=== PATIENT | female | born 1940 | race Caucasian/White ===

== ENCOUNTER 2018-07-23 11:09 | Day surgery (SDC) | payer OTHER, BC ==
[2018-06-27 16:11] VITALS: BMI 23.6
--- NOTE | 2018-06-28 09:36 | HP ---
Admitting History and Physical - Primary Care Physician PCP: Michael Bullard - Admission Chief Complaint: Right breast cancer History of Present Illness: 77 year old nulliparous postmenapausal female who noted right nipple retraction 04/2018. mammogram and US 05/2018 showed subareolar density 2.6 cm with calcifications measuring 2.2 cm on US at 11:00 1 cm FN. 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 Breast MRI 06/2018 showed localized right breast cancer. History Source: Patient Limitations to Obtaining History: No Limitations - Past Medical History Cardiovascular: Yes: HTN, Hyperlipdemia - Past Surgical History Past Surgical History: Yes: Cataract Removal (), Tonsillectomy (1944) - Smoking History Smoking history: Never smoked - Alcohol/Substance Use Hx Alcohol Use: Yes (2 vodka and soda daily) Home Medications - Allergies Allergies/Adverse Reactions: Allergies Allergy/AdvReac Type Severity Reaction Status Date / Time No Known Allergies Allergy Verified 06/27/18 15:50 - Home Medications Home Medications: Ambulatory Orders Folic Acid 1 mg PO DAILY 06/27/18 Simvastatin [Zocor -] 10 mg PO DAILY 06/27/18 Telmisartan/Amlodipine [Telmisartan-Amlodipine 80-5 mg] 1 each PO DAILY Vitamin B Complex 1 each PO DAILY 06/27/18 Family Disease History - Family Disease History Family History: Denies Physical Examination Constitutional: Yes: Well Nourished Breast(s): Yes: Other (tremely ptotic breasts D cup with obvious right nipple retraction 2 cm density right breast lateral subareolar region but no obvious retraction no adenopathy) Problem List - Problems (1) Breast cancer, right breast Code(s): C50.911 - MALIGNANT NEOPLASM OF UNSP SITE OF RIGHT FEMALE BREAST Qualifiers: Breast location: central portion of breast Estrogen receptor status: negative Patient sex: female Qualified Code(s): C50.111 - Malignant neoplasm of central portion of right female breast; Z17.1 - Estrogen receptor negative status [ER-] Assessment/Plan Right central wide excision , sentenel node biopsy , possible axillary node dissection, lymphoscintogram
[2018-07-23] MEDS ORDERED: BUPIVACAINE HCL/PF 2.5 MG/ML - 30 ML VIAL IJ ONE (12:36)
[2018-07-23] MEDS ORDERED: ISOSULFAN BLUE 10 MG/ML VIAL SQ ONE (12:36)
[2018-07-23] MEDS ORDERED: PROPOFOL 20 ML ONE (13:52)
[2018-07-23] MEDS ORDERED: SODIUM CHLORIDE 0.9% P/F 10 ML VIAL IJ ONE (13:54)
[2018-07-23] MEDS ORDERED: ceFAZolin SODIUM 1 GM VIAL ONE (13:54)
[2018-07-23] MEDS ORDERED: ONDANSETRON 4 MG/2 ML VIAL ONE ×2 (14:19→16:42)
[2018-07-23] MEDS ORDERED: DEXAMETHASONE SOD PHOSPHATE 4 MG/1 ML VIAL ONE (14:19)
[2018-07-23] MEDS ORDERED: BUPIVACAINE HCL/PF 0.25% (2.5MG/ML) 10 ML VIAL IJ ONE (14:26)
[2018-07-23] MEDS ORDERED: KETOROLAC TROMETHAMINE 30 MG/1 ML VIAL ONE (14:57)
[2018-07-23] MEDS ORDERED: oxyCODONE HCL 5 MG TABLET PO PRN (15:13)
[2018-07-23] MEDS ORDERED: PROMETHAZINE HCL 25 MG/1 ML VIAL IVPUSH PRN (15:13)
[2018-07-23] MEDS ORDERED: LACTATED RINGERS SOLUTION 1,000 ML IV SCH (15:15)
[2018-07-23] MEDS ORDERED: ONDANSETRON 4 MG/2 ML VIAL IVPUSH PRN ×2 (15:27→16:13)
[2018-07-23] MEDS ORDERED: GUM MASTIC/STORAX/MSAL/ALCOHOL 1 DRP DROPSBTL MC ONE (15:27)
[2018-07-23] MEDS ORDERED: METOPROLOL TARTRATE 5 MG/5 ML VIAL ONE (15:40)
[2018-07-23] MEDS ORDERED: KETOROLAC TROMETHAMINE 30 MG/1 ML VIAL IVPUSH PRN (16:13)
[2018-07-23] MEDS ORDERED: DEXTROSE 5%-0.45% SALINE 1,000 ML IV SCH (16:15)
[2018-07-23 16:56] VITALS: TEMP 97.9
[2018-07-23 18:17] VITALS: BP 135/77; PULSE 76
--- NOTE | 2018-07-24 01:39 | OP ---
DATE OF OPERATION: 07/23/2018 PREOPERATIVE DIAGNOSIS: Right breast central upper outer quadrant breast cancer. POSTOPERATIVE DIAGNOSIS: Right breast central upper outer quadrant breast cancer. PROCEDURE: Right breast central wide excision with right axillary sentinel lymph node biopsy and 5 x 6 cm tissue transfer closure. ANESTHESIA: General laryngeal mask airway anesthesia. PRIMARY SURGEON: Danay Bullard MD PROJECTS MANAGER: JOSE Fritz COMPLICATIONS: None. INDICATIONS: Briefly, the patient is a 77-year-old nulliparous, postmenopausal white female of [place], [place], and [place] descent. She developed some right nipple retraction in April 2018 and a mammogram and ultrasound showed subareolar 2.6-cm mass. Ultrasound showed a 2.2-cm density at the 11 o'clock periareolar region 1 cm from the nipple. Ultrasound-guided core biopsy in May 2018 showed a metaplastic triple-negative breast cancer. She underwent an MRI, which showed a 3.3 x 2.2 x 1.6 cm mass just towards the upper outer aspect of the right breast, which was localized. The patient was advised to undergo a right breast central wide excision with axillary sentinel lymph node biopsy. Preoperatively, however, she was noted to have thrombocytosis with a platelet count over 800,000 and was seen by Hematology and was placed on hydroxyurea preoperatively until we could get her platelet count down low enough to perform the surgery. The patient is felt to be stable for surgery and was scheduled for July 23, 2018. She first underwent a lymphoscintigraphy to her periareolar injection of technetium 99 at [facility] on July 23, 2018. She was brought to the [facility] area. In the holding area, site verification was made and informed consent was obtained. DESCRIPTION OF PROCEDURE: She was brought into the operating room and laid on the OR table in the supine position. Venodynes were placed on the lower extremities prior to induction. She received 1 g of Ancef prior to incision. She underwent general laryngeal mask airway anesthesia. Then 3 mL of Lymphazurin blue were injected intradermally around the periareolar region of the right breast nipple areolar complex. Massage was instituted. The right breast was then sterilely prepped and draped in the usual fashion with the right arm prepped in the field. At this point, the sentinel lymph node biopsy was first performed. An incision was made just below the hair-bearing area of the right axilla and dissection was undertaken using the navigator probe to direct the dissection. Four sentinel lymph nodes were easily found in the right axillary region. The first node was blue and hot with a 10-second gamma count of 4592. The second sentinel lymph node was hot with a 10-second gamma count of 1531. The third sentinel lymph node was hot with a 10-second gamma count of 190. The fourth sentinel lymph node in the level 2 region was hot with a 10-second gamma count of 3040. Back counts after removing these 4 nodes was 25. No other blue or hot nodes were found. These were all sent to Pathology on formalin for permanent section. None of them were grossly involved with cancer. Hemostasis was achieved and the axillary wound was closed using interrupted 2-0 plain suture and interrupted 3-0 deep dermal Vicryl suture and a running 4-0 subcuticular Biosyn suture. At this point, the central wide excision was undertaken by making an elliptical incision encompassing the nipple areolar complex centrally and wedging deeply into the right breast and staying away from the tumor. The mass was completely excised with surrounding breast tissue all of the way down to the pectoralis major muscle in a wedge-like fashion. The specimen was oriented with a long lateral, short superior suture and specimen radiographs showed removal of the clip in question. Hemostasis was achieved. Separate margins were then taken on the superior, inferior, medial, lateral, and deep aspects with sutures marking the biopsy cavity side. These were all sent separately to Pathology as wide excision margins. At this point, a 6 x 8 cm tissue transfer closure was accomplished by undermining the breast tissue and reapproximating the breast tissue using interrupted 2-0 plain suture. The skin was then closed using interrupted 3-0 deep dermal Vicryl suture and a running 4-0 subcuticular Biosyn suture. Mastisol and Steri-Strips were applied over the wounds with a compressive dressing placed over this. She was placed in a surgical bra postoperatively. Laryngeal mask air tube was removed at the end of the case. The patient was transferred to the postanesthesia care unit in stable condition. She will be recovered and discharged home the same day once discharge criteria are met. She is to follow up in the office in 1 week for formal wound and pathology check. Estimated blood loss was about 50 mL. She was hemodynamically stable throughout. DANAY BULLARD M.D. [id number]
--- NOTE | 2018-07-31 11:19 | PATH ---
Surgical Pathology Report Patient Name: DERIAN DELGADO [facility]. Rec. #: [id number] /Age/Gender: 1940 (Age: 77) / F Account: [id number] Location: [facility] Taken: 07/23/2018 Received: 07/23/2018 Reported: 07/31/2018 Physicians: Michael Bullard M.D. Specimen(s) Received A: RIGHT AXILLARY SENTINEL NODE #1 B: RIGHT AXILLARY SENTINEL NODE #2 C: RIGHT AXILLARY SENTINEL NODE #3 D: RIGHT AXILLARY SENTINEL NODE #4 E: RIGHT BREAST SUPERIOR MARGIN F: RIGHT BREAST MEDIAL MARGIN G: RIGHT BREAST INFERIOR MARGIN H: RIGHT BREAST LATERAL MARGIN I: RIGHT BREAST POSTERIOR MARGIN J: RIGHT BREAST WIDE EXCISION Clinical History Right central upper outer quadrant metaplastic breast cancer Final Diagnosis A. LYMPH NODE, RIGHT AXILLARY SENTINEL #1, EXCISION: ONE LYMPH NODE, NEGATIVE FOR METASTATIC CARCINOMA (0/1). B. LYMPH NODE, RIGHT AXILLARY SENTINEL #2, EXCISION: ONE LYMPH NODE, NEGATIVE FOR METASTATIC CARCINOMA (0/1). C. LYMPH NODE, RIGHT AXILLARY SENTINEL #3, EXCISION: ONE LYMPH NODE, NEGATIVE FOR METASTATIC CARCINOMA (0/1). D. LYMPH NODE, RIGHT AXILLARY SENTINEL #4, EXCISION: ONE LYMPH NODE, NEGATIVE FOR METASTATIC CARCINOMA (0/1). Note: Cytokeratin (AE 1/3) immunostain was used in the evaluation of specimen D. E. BREAST, RIGHT, SUPERIOR MARGIN, EXCISION: BENIGN PREDOMINANTLY FATTY BREAST TISSUE. F. BREAST, RIGHT, MEDIAL MARGIN, EXCISION: BENIGN PREDOMINANTLY FATTY BREAST TISSUE. G. BREAST, RIGHT, INFERIOR MARGIN, EXCISION: BENIGN BREAST TISSUE. H. BREAST, RIGHT, LATERAL MARGIN, EXCISION: BENIGN BREAST TISSUE SHOWING FIBROCYSTIC CHANGES. I. BREAST, RIGHT, POSTERIOR MARGIN, EXCISION: BENIGN BREAST TISSUE. J. 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 (SEE NOTE). CARCINOMA MEASURES 3.3 CM IN GREATEST DIMENSION (GROSS MEASUREMENT) AND INVOLVES DEEP DERMIS OF NIPPLE/SKIN AND RETROAREOLAR TISSUE. CARCINOMA IS FOCALLY CLOSE TO (< 1 MM) THE SUPERIOR MARGIN. SEE SPECIMENS E-I FOR FINAL MARGINS. NO LYMPHOVASCULAR INVASION IS IDENTIFIED. PATHOLOGIC STAGE (pTNM): pT2 pN0. SEE ALSO INVASIVE CARCINOMA CASE SUMMARY BELOW. Note: The carcinoma is comprised predominantly of short intersecting fascicles of low-grade cytologically bland spindle cells and abundant collagenous stroma. In addition, the tumor shows small, cohesive clusters of fusiform to polygonal epithelioid cells with rounded nuclei and prominent nucleoli scattered among spindle cells. Immunohistochemical studies performed at [facility] show the following results: the tumor cells are positive for cytokeratin (AE1/3) and p63 while negative for ER and WV. Immunohistochemical studies performed at [place], [place] ([id number]) show the following results: the tumor cells are positive for Cam 5.2 while negative for CD34, Calponin and Her2. Ki67 shows a low proliferative index (~10%). These finding support the diagnosis. (See also prior slide review case: our case # [id number] outside institution case # [id number]). Fibromatosis-like spindle cell carcinoma is a rare low-grade variant of metaplastic spindle cell carcinomas of the breast, which in turn represent a subclassification of metaplastic carcinoma of the breast. These tumors warrant distinction from other metaplastic carcinomas in the breast because of their unique resemblance to pure fibromatosis, their propensity for local recurrence and a favorable prognosis among the metaplastic carcinomas of the breast. These tumors can be locally aggressive with increased incidence of local recurrence, but potential for lymph node and distant metastasis is low. (Reference: Low-Grade Fibromatosis-like Spindle Cell Carcinoma of the Breast: Abel et al; Arch Pathol Lab Med- September 2014) Comments Breast Invasive Carcinoma: Surgical Pathology Case Summary (Based on AJCC TNM 8 th edition) Procedure _X_ Excision (less than total mastectomy) Specimen Laterality _X_ Right Tumor Size Microinvasion only (=1 mm) Greatest dimension of largest invasive focus >1 mm: 33 mm Histologic Type _X_ Fibromatosis-like metaplastic carcinoma Histologic Grade (Edwards Histologic Score) Glandular (Acinar)/Tubular Differentiation _X_ Score cannot be determined Nuclear Pleomorphism _X__ Score 1-2 Mitotic Rate _X_ Score 1 Overall Grade _X_ Score cannot be determined Tumor Focality _X_ Single focus of invasive carcinoma Ductal Carcinoma In Situ (DCIS) _X_ No DCIS in specimen Tumor Extension Skin _X_ Invasive carcinoma directly invades into the dermis or epidermis without skin ulceration Margins Invasive Carcinoma Margins _X_ Uninvolved by invasive carcinoma Distance from closest margin (millimeters): > 1 mm from superior margin in wide excision J. Final superior margin E is negative for carcinoma DCIS Margins _X_ No DCIS in specimen Regional Lymph Nodes Number of Lymph Nodes with Macrometastases (>2 mm): 0 Number of Lymph Nodes with Micrometastases (>0.2 mm to 2 mm and/or >200 cells): 0 Number of Lymph Nodes with Isolated Tumor Cells (=0.2 mm and =200 cells): 0 Number of Lymph Nodes Examined: 4 Number of [place] Mar Nodes Examined : 4 Treatment Effect _X_ No known presurgical therapy Lymphovascular Invasion _X_ Not identified Pathologic Stage Classification (pTNM, AJCC 8th Edition) Primary Tumor (Invasive Carcinoma) (pT) _X_ pT2: Tumor >20 mm but =50 mm in greatest dimension Regional Lymph Nodes (pN) Category (pN) _X_ pN0: No regional lymph node metastasis identified or ITCs only Biomarker Studies Results of ER and WV studies performed on this specimen (block J1) at [facility] are as follows: ER (clone [id number] mouse monoclonal antibody by [employer]):0 % nuclear staining (Negative). WV (clone16 mouse monoclonal antibody by [employer]): 0 % nuclear staining (Negative). Results of Her2 (IHC) & Ki-67 studies performed on this specimen (block J1) at [place], [place] ([id number]) are as follows: Her2 IHC (EP3 from [employer], formerly known as [id number], using [employer] Polymer Refine detection kit): 0 (Negative). Ki67: ~10% (low proliferative index). Positive and negative controls (internal if applicable) show appropriate results. Formalin fixation and cold ischemic times are within current ASCO/CAP recommendations for ER, WV and Her2 testing. Electronically Signed Jaja Alvarez M.D. Gross Description A. Received in formalin labeled "right axillary sentinel node #1," is a 1.7 x 1.5 x 0.5 cm lymph node with attached fat. The specimen is bisected and entirely submitted in one cassette. B. Received in formalin labeled "right axillary sentinel node #2," is a 1.0 x 0.6 x 0.5 cm lymph node. The specimen is bisected and entirely submitted in one cassette. C. Received in formalin labeled "right axillary sentinel node #3," is a 1.6 x 1.3 x 0.4 cm barrera lymph node. The specimen is bisected and entirely submitted in one cassette. D. Received in formalin labeled "right axillary sentinel node #4," is a 1.5 x 0.9 x 0.6 cm lymph node. The specimen is bisected and entirely submitted in one cassette. E. Received in formalin labeled "right breast superior margin," is a 3.1 x 2.7 x 1.0 cm portion of fibroadipose tissue with a suture marking the biopsy cavity side, per the surgeon. The new margin is inked blue and the specimen is serially sectioned. The specimen is entirely and is largely submitted in 4 cassettes. F. Received in formalin labeled "right breast medial margin," is a 2.5 x 1.5 x 1.0 cm portion of fibroadipose tissue with a suture marking the biopsy cavity side, per the surgeon. The new margin is inked blue and the specimen is serially sectioned. The specimen is entirely submitted in 3 cassettes. G. Received in formalin labeled "right breast inferior margin," is a 1.8 x 1.5 x 0.7 cm portion of fibroadipose tissue with a suture marking the biopsy cavity side, per the surgeon. The new margin is inked blue and the specimen is serially sectioned. The specimen is entirely submitted in 2 cassettes. H. Received in formalin labeled "right breast lateral margin," is a 2.8 x 2.2 x 1.0 cm portion of fibroadipose tissue with a suture marking the biopsy cavity side, per the surgeon. The new margin is inked blue and the specimen is serially sectioned. The specimen is entirely submitted in 3 cassettes. I. Received in formalin labeled "right breast posterior margin," is a 2.8 x 2.0 x 1.3 cm portion of fibroadipose tissue with a suture marking the biopsy cavity side, per the surgeon. The new margin is inked blue and the specimen is serially sectioned. The specimen is entirely and sequentially submitted in 4 cassettes. J. Received in formalin, labeled "right breast wide excision," is a 7.0 x 6.8 x 3.0 cm. barrera-yellow, irregular portion of fibroadipose tissue. There is no needle localization wire present. There is a short suture marking the superior aspect and a long suture marking the lateral aspect, per the surgeon. The anterior surface displays a 5.0 x 3.0 cm barrera, elliptical portion of skin with a 1.3 cm in diameter nipple. The specimen is inked as follows: Superior blue; inferior green; lateral red; medial yellow; deep black. The specimen is serially sectioned from medial to lateral. Sectioning reveals a 3.3 x 2.7 x 2.1 cm barrera, indurated mass involving the nipple. The mass abuts the skin, superior and inferior margins. The remaining margins appear widely clear of the mass. Tower Equipment Installer sections are submitted in ten cassettes as follows: 1-2-one bisected full-face section of mass (1-skin with nipple, superior and inferior margins; 2-superior and inferior margins); 3-additional nipple with mass; 4-deep margin; 5-medial margin; 6-lateral margin; 7-10- additional mass with superior and inferior margins. Time to formalin fixation: 34 minutes Total formalin fixation time: Approximately 27 hours. 07/24/2018 [facility]07/24/2018
== END 2018-07-23 18:17 | disposition home or self-care (01) ==
LOC: FASU 11:09
PROVIDERS: ATTEND Surgery Surgical Oncology
PROC: 0HBT0ZZ Excision of Right Breast, Open Approach (ICD-10-PCS; principal; 2018-07-23 14:26)
PROC: 0JX60ZZ Transfer Chest Subcutaneous Tissue and Fascia, Open Approach (ICD-10-PCS; 2018-07-23 14:26)
DX: C50.111 Malignant neoplasm of central portion of right female breast (principal); Z17.1 Estrogen receptor negative status [ER-]; I10 Essential (primary) hypertension; E78.5 Hyperlipidemia, unspecified
CPT/HCPCS: 78195-TC; 88307-TC; 88342-TC; 94760; A9541

== ENCOUNTER → 2018-12-06 | Day surgery (SDC) | payer OTHER, BC ==
--- NOTE | 2018-12-10 16:45 | PATH ---
Cytology Non-Gynecological Report Patient Name: DERIAN DELGADO [facility]. Rec. #: [id number] /Age/Gender: 1940 (Age: 78) / F Account: [id number] Location: Taken: 12/06/2018 Received: 12/06/2018 Reported: 12/10/2018 Physicians: Dread Springer M.D. Specimen(s) Received RIGHT AXILLARY LYMPH NODE Clinical History History of right breast cancer Final Diagnosis RIGHT AXILLARY LYMPH NODE, ULTRASOUND GUIDED FINE NEEDLE ASPIRATION: SATISFACTORY FOR EVALUATION. NEGATIVE FOR MALIGNANT CELLS. ACUTE INFLAMMATORY CELLS ADMIXED WITH DEBRIS. LYMPHOCYTE AGGREGATE NOT IDENTIFIED. SEE COMMENT. Comment: This may represent an inflammatory process. PAS stain for fungi and AFB stain are negative. Suggest clinical correlation. Electronically Signed Derrick Ring M.D. Gross Description Approximately 30cc of brownish fluid received fixed in 50% alcohol. 4 slides and one cellblock prepared.
== END | disposition home or self-care (01) ==
LOC: FRADUS-SUR 12:56
PROVIDERS: ATTEND Surgery Surgical Oncology
PROC: 07B53ZX Excision of Right Axillary Lymphatic, Percutaneous Approach, Diagnostic (ICD-10-PCS; principal; 2018-12-06)
DX: I88.9 Nonspecific lymphadenitis, unspecified (principal)
CPT/HCPCS: 76942; 88173; 88305-TC; 88312-TC

== ENCOUNTER 2018-12-31 13:02 | Day surgery (SDC) | payer OTHER, BC ==
--- NOTE | 2018-12-13 10:19 | HP ---
Admitting History and Physical - Primary Care Physician PCP: Michael Bullard - Admission Chief Complaint: right axillary adenopathy History of Present Illness: Patient is an 78 yo female with h/o right spindle cell metaplastic carcinoma (2018), who was noted to have a right axillary firm mass on exam 11/2018. The US done 11/22 revealed an irregular complex right axillary mass ? abnormal lymph node. The patient had an US guided core bx of this node which was negative for malignancy. The results were not concordant with the images as per radiology and now the patient is presenting for right axillary exc bx with possible andx. History Source: Patient Limitations to Obtaining History: No Limitations - Past Medical History Cardiovascular: Yes: HTN, Hyperlipdemia Heme/Onc: Yes: Other (h/o thrombocytosis) - Past Surgical History Past Surgical History: Yes: Cataract Removal (), Tonsillectomy (1944) Additional Past Surgical History: right breast WE with sentinel node bx 07/2018 - Smoking History Smoking history: Never smoked Have you smoked in the past 12 months: No - Alcohol/Substance Use Hx Alcohol Use: Yes (2 vodka and soda daily) Home Medications - Allergies Allergies/Adverse Reactions: Allergies Allergy/AdvReac Type Severity Reaction Status Date / Time No Known Allergies Allergy Verified 06/27/18 15:50 - Home Medications Home Medications: Ambulatory Orders Folic Acid 1 mg PO DAILY 06/27/18 Simvastatin [Zocor -] 10 mg PO DAILY 06/27/18 Telmisartan/Amlodipine [Telmisartan-Amlodipine 80-5 mg] 1 each PO DAILY Vitamin B Complex 1 each PO DAILY 06/27/18 Hydroxyurea 500 mg PO BID 07/23/18 Oxycodone HCl/Acetaminophen [Percocet 5-325 mg Tablet -] 1 - 2 tab PO Q6H #30 tablet MDD 6 07/23/18 Family Disease History - Family Disease History Family History: Unremarkable Review of Systems - Review of Systems Musculoskeletal: reports: Joint Pain Physical Examination Constitutional: Yes: Well Nourished Breast(s): Yes: Other (Well healed right breast incision with a palpable firm density high up in the right axilla. Otherwise no other suspicious findings bilaterally.) Problem List - Problems (1) Localized enlarged lymph nodes Code(s): R59.0 - LOCALIZED ENLARGED LYMPH NODES Assessment/Plan Right axillary exc bx with possible axillary node dissection
[2018-12-25 16:00] VITALS: BMI 20.9
[2018-12-31] MEDS ORDERED: GUM MASTIC/STORAX/MSAL/ALCOHOL 1 DRP DROPSBTL MC ONE (15:55)
[2018-12-31] MEDS ORDERED: BUPIVACAINE HCL 0.25% 125 MG/50 ML VIAL ONE (15:55)
[2018-12-31] MEDS ORDERED: KETOROLAC TROMETHAMINE 30 MG/1 ML VIAL ONE (16:08)
[2018-12-31] MEDS ORDERED: oxyCODONE HCL 5 MG TABLET PO PRN ×2 (16:36)
[2018-12-31] MEDS ORDERED: ONDANSETRON 4 MG/2 ML VIAL IVPUSH PRN ×2 (16:36)
[2018-12-31] MEDS ORDERED: PROMETHAZINE HCL 25 MG/1 ML VIAL IVPUSH PRN (16:36)
[2018-12-31] MEDS ORDERED: KETOROLAC TROMETHAMINE 30 MG/1 ML VIAL IVPUSH ONE (16:36)
[2018-12-31] MEDS ORDERED: ACETAMINOPHEN 325 MG TABLET (FP) PO ONE (16:42)
[2018-12-31] MEDS ORDERED: ACETAMINOPHEN 325 MG TABLET (FP) ONE (16:44)
[2018-12-31] MEDS ORDERED: DEXTROSE 5%-0.45% SALINE 1,000 ML IV SCH (16:45)
[2018-12-31 18:08] VITALS: TEMP 97.4
[2018-12-31 18:13] VITALS: BP 140/68; PULSE 74
--- NOTE | 2018-12-31 19:58 | OP ---
DATE OF OPERATION: 12/31/2018 PREOPERATIVE DIAGNOSIS: History of right central metaplastic breast cancer now with right axillary mass. POSTOPERATIVE DIAGNOSIS: History of right central metaplastic breast cancer now with right axillary mass. PROCEDURE: Excision of right axillary mass with separate axillary lymph node sampling. ANESTHESIA: General laryngeal mask airway anesthesia. PRIMARY SURGEON: Danay Bullard MD EDGE WORKER: JOSE Velasco COMPLICATIONS: None. INDICATIONS: Briefly, the patient is an 78-year-old nulliparous, postmenopausal white female of [place], [place], and [place] descent. She developed some right nipple retraction in April 2018 and underwent the mammography and ultrasound showing a 2.2-cm right retroareolar mass in the 11 o'clock retroareolar position, 1 cm from the nipple. Ultrasound core biopsy showed a metaplastic triple-negative breast cancer. MRI showed this to be measuring 3.3 cm and localized. She was found to have thrombocytosis preoperatively and was seen by Medical Oncology and placed on hydroxyurea. She was eventually brought to the operating room on July 23, 2018, and underwent the right breast central wide excision and sentinel lymph node biopsy. She had 4 negative sentinel nodes with a 3.3-cm metaplastic spindle cell fibromatosis-like cancer. She was seen by Medical Oncology and felt that no chemotherapy was necessary and underwent external beam radiation with Dr. Hill. On follow up in November of 2018, she was noted to have a right axillary palpable mass and ultrasound showed a 3 x 2.3 x 1.9 cm regular complex mass in the right axilla. She underwent FNA under ultrasound guidance, which was benign, but due to the suspicious nature of this mass, it was felt that excision would be needed for histologic diagnosis. DESCRIPTION OF PROCEDURE: She was brought in for the procedure on December 31, 2018, at [facility]. In the holding area, site verification was made and informed consent was obtained. She was brought into the operating room and placed on the OR table in the supine position. Venodynes were placed on the lower extremities prior to induction. She received 1 g of Ancef prior to incision. She underwent general laryngeal mask anesthesia. The right breast and axilla were sterilely prepped and draped in the usual fashion. Timeout was then called. The surgery was begun with incision over the palpable right axillary mass. Dissection was undertaken and the mass was easily found in the lower right axilla. It was very vascular and suspicious and fully excised. It was felt to be an area of lymph node, possibly involved with cancer. This was placed in formalin for permanent section. Other adjacent nodes, which were slightly firm, were also sent to Pathology as separate right axillary lymph nodes. Due to the amount of dissection, hemostasis was achieved and the wound was copiously irrigated. A 15-FLAVIO drain was placed in the right axilla and brought through a separate stab incision in the anterior axillary line and sutured in place using a 3-0 nylon suture. The axial wound was then closed using interrupted 2-0 plain suture. The skin was closed using interrupted 3-0 deep dermal Vicryl suture and a running 4-0 subcuticular Biosyn suture. Mastisol and Steri-Strips were applied over the wound. A sterile dressing was applied. She was placed in a surgical bra postoperatively. The patient will be taught FLAVIO drain management and sent home the same day once discharge criteria are met. She is to follow up in the office in 1 week for formal wound pathology check. All sponge and needle counts were correct at the end of the case. Estimated blood loss was about 20 mL. DANAY BULLARD M.D. [id number]
--- NOTE | 2019-01-03 13:36 | PATH ---
Surgical Pathology Report Patient Name: DERIAN DELGADO Med. Rec. #: [id number] /Age/Gender: 1940 (Age: 78) / F Account: [id number] Location: [facility] Taken: 12/31/2018 Received: 12/31/2018 Reported: 01/03/2019 Physicians: Michael Bullard M.D. 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 axilla, right, mass, excision: CIRCUMSCRIBED Organizing hematoma WITH FIBROSIS (2.2 CM). TWO benign lymph nodes (0/2). Changes of prior procedure are present. (See note). Note: Cytokeratin (AE1/3) immunostain was performed on block A4 and is negative. Prior FNA report (DC19-7) is noted. Case discussed with Dr. Michael Bullard on 01/03/19. B. axillary lymph nodes, right, excision: Two BENIGN Lymph nodes (0/2). Electronically Signed Jaja Alvarze M.D. Gross Description A. Received in formalin labeled "right axillary mass," is a 4.0 x 2.8 x 2.0 cm unoriented portion of fibroadipose tissue. There is no needle localization wire present. There is no skin present. The specimen is inked black and serially sectioned. Sectioning reveals three barrera circumscribed nodules ranging from 0.8 -2.2 cm in greatest dimension. The largest nodule appears light barrera with areas of central softening. The other two nodules are consistent with lymph nodes. The specimen is entirely submitted in 5 cassettes. B. Received in formalin labeled "right axillary lymph nodes," is a 3.0 x 2.5 x 1.0 cm aggregate of yellow, lobulated adipose tissue. Sectioning reveals 2 lymph nodes with attached fat, averaging 1.0 cm in greatest dimension. The lymph nodes are entirely submitted in 2 cassettes. DL01/01/201901/01/2019
== END 2018-12-31 18:25 | disposition home or self-care (01) | DRG 804 ==
LOC: FM/S 13:02 → FASU 13:02 → UNDOADMIN 13:02 → EDSTATUS 13:30 → FASU 18:25 → UNDODISIN 18:25
PROVIDERS: ATTEND Surgery Surgical Oncology
PROC: 07B50ZX Excision of Right Axillary Lymphatic, Open Approach, Diagnostic (ICD-10-PCS; principal; 2018-12-31 15:38)
DX: N60.81 Other benign mammary dysplasias of right breast (principal); R59.0 Localized enlarged lymph nodes; I10 Essential (primary) hypertension; E78.5 Hyperlipidemia, unspecified; Z85.3 Personal history of malignant neoplasm of breast
CPT/HCPCS: 88307-TC; 88342-TC